=== PATIENT | male | born 1955 | race Asian ===

== ENCOUNTER 2016-12-25 15:23 | Emergency (ER) | payer OTHER ==
[2016-12-25 15:30] VITALS: TEMP 98.6; BMI 24.9
--- NOTE | 2016-12-25 15:53 | PDOC ---
History of Present Illness - General Chief Complaint: Injury Stated Complaint: FALL/ HEAD INJURY/asa Time Seen by Provider: 12/25/16 15:32 History Source: Patient Exam Limitations: No Limitations - History of Present Illness Initial Comments: CHIEF COMPLAINT: 61 y/o afebrile male with PMH HTN, HLD, DM here after fall with head trauma at home. HISTORY OF PRESENT ILLNESS: The patient states he was running up the stairs at home quickly when he tripped and fell face forward onto the stairs. He said he didn't even have time to put his hands out and hit his forehead on the step. He states after the fall he felt dizzy for a few seconds. He now has a hematoma on his head. He denies LOC, neck pain, CARUSO, changes in vision/hearing, bleeding from ears/nose/mouth, n/v/d, CP, SOB, cough, hemoptysis, abd pain, back pain, numbness/tingling in extremities, seizures, slurred speech. His son and nephew are with him and they deny abnormal behavior, slurred speech, facial drooping, seizures, vomiting. The patient takes a baby aspirin every day. Vital signs on arrival are within normal limits. REVIEW OF SYSTEMS: GENERAL/CONSTITUTIONAL: No fever/chills. No weakness. No weight change. HEAD, EYES, EARS, NOSE AND THROAT: No change in vision. No ear pain or discharge. No sore throat. CARDIOVASCULAR: No chest pain or shortness of breath. RESPIRATORY: No cough, wheezing, or hemoptysis. GASTROINTESTINAL: No abd pain, nausea, vomiting, diarrhea. GENITOURINARY: No dysuria, frequency, or change in urination. MUSCULOSKELETAL: No joint or muscle swelling or pain. No neck or back pain. SKIN: No rash or easy bruising. NEUROLOGIC: +head injury with bump to head. No headache, vertigo, loss of consciousness, or loss of sensation. PHYSICAL EXAM: GENERAL: The patient is awake, alert, and fully oriented, in no acute distress. He is well appearing, ambulatory, in NAD or obvious discomfort. HEAD: approximately 4cm hematoma to right forehead with multiple abrasions on surface of hematoma. No active bleeding. No wright's signs. NECK: No midline cervical spine TTP, step offs or crepitus ENT: Pupils equal, round and reactive to light, extraocular movements intact, sclera anicteric, conjunctiva clear. No pain with EOMs. No entrapment. No Raccoon eyes. LUNGS: Clear to auscultation bilaterally. Normal excursion. No respiratory distress or use of accessory muscles. CV: RRR, S1/S2, no MRG. Cap refill < 2 sec. ABDOMEN: Soft, non-distended, non-tender even to deep palpation, no hepatomegaly or splenomegaly, no masses. EXTREMITIES: Normal range of motion, no edema. TTP of left 2nd toe without edema, erythema, crepitus or deformity. 0.5cm abrasion to right knee without active bleeing. NEUROLOGICAL: Normal speech, normal gait. CN II-XII grossly intact. No slurred speech. No facial drooping. A&O x 3. Normal finger to nose. Normal rapid alternating movements. Equal straight leg raise b/l. PSYCH: Normal mood, normal affect. SKIN: Warm, dry, normal turgor, no rashes or lesions noted. Past History - Past Medical History Allergies/Adverse Reactions: Allergies Allergy/AdvReac Type Severity Reaction Status Date / Time No Known Allergies Allergy Verified 12/25/16 15:25 Diabetes: Yes (niddm) HTN: Yes Hypercholesterolemia: Yes - Psycho/Social/Smoking Cessation Hx Anxiety: No Suicidal Ideation: No Smoking History: Never smoked Have you smoked in the past 12 months: Yes Number of Cigarettes Smoked Daily: 10 Information on smoking cessation initiated: Yes Hx Alcohol Use: No Drug/Substance Use Hx: No Substance Use Type: None *Physical Exam - Vital Signs Last Vital Signs Temp Pulse Resp BP Pulse Ox 98.6 F 80 18 156/75 100 12/25/16 15:28 12/25/16 15:28 12/25/16 15:28 12/25/16 15:28 12/25/16 15:28 Medical Decision Making - Medical Decision Making A/P: 61 y/o afebrile male with head trauma at 2:40pm this afternoon when he tripped running up the stairs. The patient has a normal Neurological exam and denies LOC, n/v/d, seizures, slurred speech, abnormal behavior. The [place] Head CT Rule suggests a head CT is not necessary for this patient ( sensitivity 83-100% for all intracranial traumatic findings, sensitivity 100% for findings requiring neurosurgical intervention). The [place] Head CT Rule suggests a head CT is necessary for this patient to rule out an intracranial traumatic finding (sensitivity 97-100%). Will send for CT scan to r/o bleed. Will give Tetanus injection. Head wound cleaned with hydrogen peroxide and covered. Head CT IMPRESSION: No CT evidence of acute intracranial pathology. Gave the patient and his family the results. Will discharge to home with head trauma precautions. Pt instructed to return to the ER immediately with any worsening or concerning symptoms. The patient verbalizes understanding of all instructions, has no further questions and is awaiting discharge. *DC/Admit/Observation/Transfer Diagnosis at time of Disposition: Fall (on) (from) other stairs and steps, initial encounter Head trauma Qualifiers: Encounter type: initial encounter Qualified Code(s): S09.90XA - Unspecified injury of head, initial encounter - Discharge Dispostion Disposition: HOME Condition at time of disposition: Good - Referrals Referrals: Eva Barahona MD [Primary Care Provider] - - Patient Instructions Printed Discharge Instructions: DI for Closed Head Injury Additional Instructions: Discharge Instructions: -The Cat Scan of your head was negative for any bleeding -Return to the ER immediately with any worsening or concerning symptoms, including vomiting, CARUSO that won't go away, seizures, abnormal behavior, slurred speech. - Post Discharge Activity Work/School Note: Back to Work
[2016-12-25] MEDS ORDERED: TETANUS AND DIPHTHERIA TOXOID 0.5 ML DISP.SYRIN IM ONE (15:54)
[2016-12-25 18:01] VITALS: BP 132/79; PULSE 56
== END 2016-12-25 18:01 | disposition home or self-care (01) ==
LOC: JER 15:23
DX: S00.83XA Contusion of other part of head, initial encounter (principal); W10.8XXA Fall (on) (from) other stairs and steps, initial encounter; Y93.89 Activity, other specified; Y92.018 Other place in single-family (private) house as the place of occurrence of the external cause; E11.9 Type 2 diabetes mellitus without complications; E78.00 Pure hypercholesterolemia, unspecified; Z79.84 Long term (current) use of oral hypoglycemic drugs
CPT/HCPCS: 70450-TC; 99282-25